=== PATIENT | female | born 1975 | race African-American/Black ===

== ENCOUNTER 2018-09-21 10:55 | Inpatient (IN) | payer MEDICAID, OTHER ==
[~2018-09-21] VITALS: Ht 170.2 cm; Wt 123.4 kg
[2018-09-21 11:54] LABS: BASOPHILS % 1.4 % (0.0-2.0); CLARITY URINE CLEAR (CLEAR); COLOR URINE YELLOW (YELLOW); EOSINOPHILS % 3.9 % (0.0-5.0); HEMATOCRIT. 44.9 % (36.0-48.0); HEMOGLOBIN. 14.9 g/dL (12.0-16.0); KETONES URINE NEGATIVE (NEGATIVE); LEUKOCYTE ESTERASE URINE NEGATIVE (NEGATIVE); LYMPHOCYTES % 12.6 % (20.0-50.0); MEAN CORPUSCULAR HEMOGLOBIN 30.5 pg (28.0-32.0); MEAN CORPUSCULAR VOLUME 92.3 fL (81.0-99.0); MEAN PLATELET VOLUME 9.4 fl (7.4-10.4); MONOCYTES % 4.8 % (2.0-8.0); NEUTROPHILS % 77.3 % (40.0-76.0); NITRITE URINE NEGATIVE (NEGATIVE); OCCULT BLOOD URINE NEGATIVE (NEGATIVE); PH URINE 7.5 (4.5-8.0); PLATELET 211 x1000/uL (130-400); PROTEIN URINE NEGATIVE (NEGATIVE); RED BLOOD CELL COUNT 4.87 mill/uL (4.2-5.4); RED CELL DISTRIBUTION WIDTH 13.1 % (11.6-14.6); SPECIFIC GRAVITY URINE 1.006 (1.005-1.030); UROBILINOGEN URINE 0.2 E.U./dL (0.2-1.0)
[2018-09-21] MEDS ORDERED: METO1TAB40 PO (11:54)
[2018-09-21] MEDS ORDERED: LOSA1TAB34 MT (11:54)
[2018-09-21 11:59] LABS: CHLORIDE 109 mEq/L (98-107)
[2018-09-21] MEDS ORDERED: HYDR100T26 MT (11:59)
[2018-09-21] MEDS ORDERED: HYDR25TA MT (11:59)
[2018-09-21 12:01] LABS: INR 0.9; PARTIAL THROMBOPLASTIN TIME 28.5 sec (23.4-31.0); PROTHROMBIN TIME 9.4 sec (9.6-11.0)
[2018-09-21 12:08] LABS: CREATINE KINASE 86 IU/L (26-192)
[2018-09-21 12:11] LABS: CREATINE KINASE MB FRACTION 1.1 ng/mL (0.5-3.6)
[2018-09-21 12:29] LABS: HCG SCREEN NEGATIVE
[2018-09-21] MEDS ORDERED: ENALAPRIL 2.5MG/2ML VIAL 2ML IV ONE (13:00)
[2018-09-21] MEDS ORDERED: KETOROLAC 30MG/ML VIAL IV ONE (14:00)
[2018-09-21] MEDS ORDERED: ASPIRIN 81MG TABLET PO ONE (14:15)
[2018-09-21] MEDS ORDERED: ONDANSETRON HCL 4MG/2ML INJ IV PRN (15:45)
[2018-09-21] MEDS ORDERED: ACETAMINOPHEN 325MG TABLET PO PRN (15:45)
[2018-09-21] MEDS ORDERED: ZOLPIDEM TARTRATE 5MG TABLET PO PRN (15:45)
[2018-09-21] MEDS ORDERED: LOSARTAN POTASSIUM 50 MG TABLET PO SCH (17:00)
[2018-09-21 17:15] VITALS: BP 182/104
[2018-09-21] MEDS: HYDRALAZINE 20MG/ML VIAL IV PRN (17:32)
[2018-09-21 20:00] VITALS: BP 163/99
[2018-09-21] MEDS: AMLODIPINE 5MG TABLET PO SCH ×2 (20:30→20:39)
[2018-09-21] MEDS: CLONIDINE 0.1MG TABLET PO PRN (20:30)
[2018-09-21] MEDS ORDERED: LOSA100T14 PO (21:45)
[2018-09-21] MEDS ORDERED: METO-539 PO (21:45)
[2018-09-21] MEDS ORDERED: HYDR-4135 PO (21:45)
[2018-09-21] MEDS: KETOROLAC 30MG/ML VIAL IV PRN (22:08)
[2018-09-21] MEDS: HYDRALAZINE HCL 50MG TABLET PO SCH (22:09)
[2018-09-22] VITALS: BP 149/66
[2018-09-22 04:00] VITALS: BP 135/69
[2018-09-22] MEDS: HYDRALAZINE HCL 50MG TABLET PO SCH ×3 (06:56→20:45)
[2018-09-22] MEDS: KETOROLAC 30MG/ML VIAL IV PRN ×3 (07:23→22:54)
[2018-09-22 08:00] VITALS: BP 138/89
[2018-09-22] MEDS: HYDROCHLOROTHIAZIDE 25MG TABLET PO SCH (08:59)
[2018-09-22] MEDS: LOSARTAN POTASSIUM 100 MG TABLET PO SCH (08:59)
[2018-09-22] MEDS: ASPIRIN 81MG TABLET PO SCH (09:00)
[2018-09-22] MEDS: AMLODIPINE 5MG TABLET PO SCH ×2 (09:00→20:46)
[2018-09-22] MEDS: METOPROLOL TARTRATE 50MG TABLET PO SCH ×2 (09:00→20:46)
[2018-09-22 09:11] LABS: *AMPHETAMINES SCREEN URINE NEGATIVE (NEGATIVE); *BARBITURATES SCREEN URINE NEGATIVE (NEGATIVE); *BENZODIAZEPINES SCREEN URINE NEGATIVE (NEGATIVE)
[2018-09-22 09:12] LABS: *COCAINE SCREEN URINE NEGATIVE (NEGATIVE); METHADONE URINE SCREEN NEGATIVE (NEGATIVE); OPIATES URINE SCREEN NEGATIVE (NEGATIVE); PHENCYCLIDINE URINE SCREEN NEGATIVE (NEGATIVE)
[2018-09-22 09:16] LABS: CANNABINOID URINE SCREEN PRESUMTIVE POSITIVE (NEGATIVE)
[2018-09-22 09:29] LABS: EOSINOPHILS % 4.2 % (0.0-5.0); HEMOGLOBIN. 14.4 g/dL (12.0-16.0); LYMPHOCYTES % 14.6 % (20.0-50.0); MEAN CORPUSCULAR HEMOGLOBIN 30.7 pg (28.0-32.0); MEAN PLATELET VOLUME 10.1 fl (7.4-10.4); NEUTROPHILS % 75.2 % (40.0-76.0); PLATELET 195 x1000/uL (130-400); RED BLOOD CELL COUNT 4.67 mill/uL (4.2-5.4); RED CELL DISTRIBUTION WIDTH 13.4 % (11.6-14.6)
[2018-09-22 09:34] LABS: CHLORIDE 109 mEq/L (98-107)
[2018-09-22 12:00] VITALS: BP 156/97
[2018-09-22] MEDS ORDERED: SUMATRIPTAN SUCCINATE 6MG/0.5ML VIAL SUBCUT NR (15:30)
[2018-09-22] MEDS: DIPHENHYDRAMINE 50MG/ML VIAL IV PRN (15:46)
[2018-09-22] MEDS: MECLIZINE 25MG TABLET PO PRN (15:46)
[2018-09-22 16:00] VITALS: BP 164/87
[2018-09-22] MEDS: CLONIDINE 0.1MG TABLET PO PRN (16:09)
[2018-09-22 20:00] VITALS: BP 146/97
[2018-09-23] VITALS: BP 99/63
[2018-09-23] MEDS: MECLIZINE 25MG TABLET PO PRN ×3 (03:30→17:33)
[2018-09-23 04:00] VITALS: BP 113/61
[2018-09-23] MEDS: HYDRALAZINE HCL 50MG TABLET PO SCH ×3 (06:27→21:02)
[2018-09-23 08:00] VITALS: BP 129/68
[2018-09-23] MEDS: METOPROLOL TARTRATE 50MG TABLET PO SCH ×2 (08:40→21:03)
[2018-09-23] MEDS: AMLODIPINE 5MG TABLET PO SCH ×2 (08:40→21:02)
[2018-09-23] MEDS: ASPIRIN 81MG TABLET PO SCH (08:40)
[2018-09-23] MEDS: KETOROLAC 30MG/ML VIAL IV PRN (08:42)
[2018-09-23] MEDS: HYDROCHLOROTHIAZIDE 25MG TABLET PO SCH (08:44)
[2018-09-23] MEDS: LOSARTAN POTASSIUM 100 MG TABLET PO SCH (08:45)
[2018-09-23 12:00] VITALS: BP 94/45
[2018-09-23] MEDS ORDERED: SUMATRIPTAN SUCCINATE 6MG/0.5ML VIAL SUBCUT NR (15:30)
[2018-09-23 16:00] VITALS: BP 110/53
[2018-09-23] MEDS: DIPHENHYDRAMINE 50MG/ML VIAL IV PRN (17:34)
[2018-09-23 20:14] VITALS: BP 161/95
[2018-09-24] VITALS (7 sets, daily range): BP systolic 111–149; BP diastolic 63–92
[2018-09-24] MEDS: HYDRALAZINE HCL 50MG TABLET PO SCH ×2 (05:50→14:42)
[2018-09-24] MEDS: KETOROLAC 30MG/ML VIAL IV PRN (05:51)
[2018-09-24 06:32] LABS: EOSINOPHILS % 4.8 % (0.0-5.0); HEMATOCRIT. 41.1 % (36.0-48.0); HEMOGLOBIN. 13.9 g/dL (12.0-16.0); LYMPHOCYTES % 14.1 % (20.0-50.0); MEAN CORPUSCULAR HEMOGLOBIN 30.8 pg (28.0-32.0); MEAN CORPUSCULAR VOLUME 91.4 fL (81.0-99.0); MEAN PLATELET VOLUME 9.5 fl (7.4-10.4); MONOCYTES % 5.3 % (2.0-8.0); NEUTROPHILS % 74.8 % (40.0-76.0); PLATELET 198 x1000/uL (130-400); RED CELL DISTRIBUTION WIDTH 13.3 % (11.6-14.6)
[2018-09-24 07:06] LABS: CHLORIDE 109 mEq/L (98-107)
[2018-09-24] MEDS ORDERED: LORAZEPAM 2MG/ML CPJ IV NR (09:30)
[2018-09-24 09:31] LABS: T4 FREE 0.91 ng/dL (0.76-1.46)
[2018-09-24 09:41] LABS: FOLIC ACID (FOLATE) SERUM 9.9 ng/mL (>5.38)
[2018-09-24] MEDS: AMLODIPINE 5MG TABLET PO SCH (10:33)
[2018-09-24] MEDS: LOSARTAN POTASSIUM 100 MG TABLET PO SCH (10:33)
[2018-09-24] MEDS: ASPIRIN 81MG TABLET PO SCH (10:33)
[2018-09-24] MEDS: METOPROLOL TARTRATE 50MG TABLET PO SCH (10:33)
[2018-09-24] MEDS: HYDROCHLOROTHIAZIDE 25MG TABLET PO SCH (10:34)
[2018-09-24] MEDS: HYDRALAZINE 20MG/ML VIAL IV PRN (14:40)
== END 2018-09-24 18:35 | disposition home or self-care (01) | DRG 199 ==
LOC: ER 10:55 → 7WST 14:11 → ENRESERV 15:19
PROVIDERS: ADMIT Internal Medicine; ATTEND Internal Medicine
DX: I16.0 Hypertensive urgency (principal); E87.8 Other disorders of electrolyte and fluid balance, not elsewhere classified; I50.9 Heart failure, unspecified; E03.9 Hypothyroidism, unspecified; E66.9 Obesity, unspecified; F12.90 Cannabis use, unspecified, uncomplicated; I11.0 Hypertensive heart disease with heart failure; R51 Headache; Z90.49 Acquired absence of other specified parts of digestive tract; Z90.710 Acquired absence of both cervix and uterus; Q07.00 Arnold-Chiari syndrome without spina bifida or hydrocephalus; Q89.9 Congenital malformation, unspecified; Z68.41 Body mass index [BMI] 40.0-44.9, adult; Z71.89 Other specified counseling; Z88.5 Allergy status to narcotic agent
CPT/HCPCS: 36415; 70544; 70551; 71045; 72141; 80048; 80061; 80305; 80320; 82550; 82553; 82607; 82746; 83036; 83735; 83880; 84439; 84443; 84481; 84484; 84703; 85651; 86038; 86703; 93005; 93306; 96374; 96375; 97162; 97165; 99285; J0360; J1200; J1885; J2060; J2405; J3030; J3490; J8597; G0480